=== PATIENT | male | born 1995 | race Caucasian/White ===

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

== ENCOUNTER 2017-11-18 09:47 | Observation (INO) | payer OTHER ==
--- NOTE | 2017-11-18 09:53 | ER Document Report ---
HPI - HPI Patient complains to provider of: abscess Pain Level: 4 Context: Patient is a 22-year-old male who presents emergency department the chief complaint of perirectal pain. Patient states his been there for the past 3-4 days. Patient denies any pain with defecation but he admits to loose stools. States he had a similar occurrence of this in the past where he was initiated antibiotics and warm soaks in its drained on its own. Symptoms about 2 years ago. Denies any fevers or chills. Patient denies any drug use. Patient admits to smoking cigarettes. Past Medical History - Social History Smoking Status: Current Every Day Smoker Family History: Reviewed & Not Pertinent - Past Medical History Cardiac Medical History: Reports: Hx Hypertension Renal/ Medical History: Denies: Hx Peritoneal Dialysis - Immunizations Immunizations up to date: Yes Hx Diphtheria, Pertussis, Tetanus Vaccination: Yes Vertical Provider Document - CONSTITUTIONAL Agree With Documented VS: Yes Notes: PHYSICAL EXAM GENERAL: Alert, interacts well. Rectal: Induration, erythema and tenderness left side of the perirectal area digital rectal exam with tenderness NEUROLOGICAL: Alert and oriented x4. Normal speech. PSYCH: Normal affect, normal mood. SKIN: Warm, dry, normal turgor. Palpable induration and erythema along the left perirectal area. - INFECTION CONTROL TRAVEL OUTSIDE OF THE [place] IN LAST 30 DAYS: No Course - Re-evaluation Re-evalutation: 11/18/17 10:05 Patient is a 22-year-old male is hemodynamically stable, no acute distress afebrile. Presentation is concerning for perirectal abscess. Patient's last p.o. intake was 4 AM. Patient to be evaluated by surgeon Dr jamison 11/18/17 10:15 Patient can go to the OR with Dr. Jamison. IV access obtained family agreeable to plan. - Vital Signs Vital signs: Temp Pulse Resp BP Pulse Ox 98.7 F 96 18 134/77 H 98 11/18/17 09:51 11/18/17 09:51 11/18/17 09:51 11/18/17 09:51 11/18/17 09:51 Discharge - Discharge Clinical Impression: Perirectal abscess Condition: Good Disposition: ADMITTED OBSERVATION Admitting Provider: Surgicalist Unit Admitted: Surgical Floor Referrals: KYMBERLY LOZANO MD [Primary Care Provider] - Follow up as needed
[2017-11-18] MEDS ORDERED: RINGERS SOLUTION,LACTATED 1,000 ML IV PRN (10:14)
[2017-11-18] MEDS ORDERED: PIPERACILLIN/TAZOBACTAM 3.375 GM VIAL IV ONE (10:14)
[2017-11-18 10:51] LABS: ABSOLUTE BASOPHILS # (AUTO) 0.1 10^3/uL (0.0-0.2); ABSOLUTE EOSINOPHILS # (AUTO) 0.2 10^3/uL (0.0-0.6); ABSOLUTE LYMPHOCYTES (AUTO) 1.7 10^3/uL (0.5-4.7); ABSOLUTE MONOCYTES (AUTO) 1.2 10^3/uL (0.1-1.4); BASOPHILS % (AUTO) 0.4 % (0-2); EOSINOPHILS % (AUTO) 1.5 % (0-6); HEMATOCRIT 46.4 % (37.9-51.0); HEMOGLOBIN 15.9 g/dL (13.5-17.0); LYMPHOCYTES % (AUTO) 12.9 % (13-45); MEAN CORPUSCULAR HEMOGLOBIN 31.7 pg (27.0-33.4); MEAN CORPUSCULAR HGB CONC 34.3 g/dL (32.0-36.0); MEAN CORPUSCULAR VOLUME 93 fl (80-97); MONOCYTES % (AUTO) 8.8 % (3-13); PLATELET COUNT 184 10^3/uL (150-450); RED BLOOD COUNT 5.01 10^6/uL (4.35-5.55); RED CELL DISTRIBUTION WIDTH 12.9 % (11.5-14.0); SEGMENTED NEUTROPHILS % (AUTO) 76.4 % (42-78); TOTAL CELLS COUNTED % (AUTO) 100 %; WHITE BLOOD COUNT 13.1 10^3/uL (4.0-10.5)
[2017-11-18 11:05] LABS: URINE AMPHETAMINES SCREEN NEGATIVE; URINE BARBITURATES SCREEN NEGATIVE; URINE BENZODIAZEPINES SCREEN NEGATIVE; URINE COCAINE SCREEN NEGATIVE; URINE MARIJUANA (THC) SCREEN NEGATIVE; URINE METHADONE SCREEN NEGATIVE; URINE PHENCYCLIDINE SCREEN NEGATIVE
[2017-11-18 11:09] LABS: ANION GAP 12 (5-19); BLOOD UREA NITROGEN 15 mg/dL (7-20); CALCIUM 9.9 mg/dL (8.4-10.2); CARBON DIOXIDE 28 mmol/L (22-30); CHLORIDE 106 mmol/L (98-107); GLUCOSE 95 mg/dL (75-110); POTASSIUM 3.8 mmol/L (3.6-5.0); SODIUM 145.6 mmol/L (137-145)
[2017-11-18] MEDS ORDERED: FENTANYL CITRATE INJ/PF 100 MCG/2 ML AMPUL ONE ×2 (12:53→14:14)
[2017-11-18] MEDS ORDERED: MIDAZOLAM 2 MG/2 ML INJ ONE (12:54)
[2017-11-18] MEDS ORDERED: MORPHINE SULFATE 10 MG/ML INJ ONE (12:54)
[2017-11-18] MEDS ORDERED: PROPOFOL INJ 200 MG/20 ML VIAL IV ONE (12:54)
[2017-11-18] MEDS ORDERED: DIPHENHYDRAMINE HCL 50 MG/ML VIAL IV PRN (12:56)
[2017-11-18] MEDS ORDERED: PROMETHAZINE HCL INJ 25 MG/1 ML VIAL IV PRN (12:56)
[2017-11-18] MEDS ORDERED: MEPERIDINE HCL/PF INJ 25 MG/1 ML DISP.SYRIN IV PRN (12:56)
[2017-11-18] MEDS ORDERED: ONDANSETRON HCL INJ/PF 4 MG/2 ML SDV IV PRN (12:56)
[2017-11-18] MEDS ORDERED: FENTANYL CITRATE INJ/PF 100 MCG/2 ML AMPUL IV PRN ×3 (12:56)
[2017-11-18] MEDS ORDERED: PROMETHAZINE HCL INJ 25 MG/1 ML VIAL ONE (14:14)
[2017-11-18] MEDS ORDERED: MORPHINE SULFATE 10 MG/ML INJ IV PRN (14:53)
[2017-11-18] MEDS ORDERED: NORMAL SALINE 1000 ML 1,000 ML IV PRN (14:54)
[2017-11-18] MEDS ORDERED: OXYCODONE-ACETAMINOPHEN 5-325 MG TABLET PO PRN (14:54)
[2017-11-18] MEDS ORDERED: SUCCINYLCHOLINE CHLORIDE INJ 200 MG/10 ML VIAL ONE (16:22)
[2017-11-18] MEDS ORDERED: PIPERACILLIN SODIUM/TAZOBACTAM 3.375 GM in NORMAL SALINE 100 ML IV SCH (18:00)
[2017-11-18 18:55] VITALS: BP 150/61
--- NOTE | 2017-11-18 20:34 | OPERATIVE REPORT E ---
Operative Report NAME: NADINE FLANAGAN : 1995 AGE: 22Y DATE OF SURGERY: 11/18/2017 ROOM: 205 PREOPERATIVE DIAGNOSIS: LEFT PERIANAL ABSCESS. POSTOPERATIVE DIAGNOSIS: LEFT PERIANAL ABSCESS. OPERATION: Incision and drainage of left perianal abscess. SURGEON: KELSEA STONER M.D. ANESTHESIA: General. INDICATIONS: This is a 22-year-old male complaining of left perianal pain for the past 2 days. Patient was seen in the urgent care center and sent immediately to our ED, where he was noted to have tenderness in the left perianal area. PROCEDURE: Patient was placed in supine position, and after adequate general anesthesia, he was then repositioned into lithotomy position. The perianal area was then prepped and draped in the usual sterile fashion. Appropriate timeout was then called. Next, rectal exam was done, and no evidence of obvious fistula noted in the rectal side. He does have some induration in the left perianal area. This was then aspirated using an 18-gauge needle for a total of about 6 mL of purulent material. The puncture site was then enlarged to about 1.5 cm in diameter. The incision was enough to allow digital probe of the cavity. It appeared to be going down posteriorly and anteriorly. Anteriorly, it was just underneath the skin, the subcutaneous area, but posteriorly, it appeared to be going through the muscle layer. This was then probed, but no evidence of connection to the rectal area was noted. This was then pulse-lavaged with 2 liters of saline, and the cavity packed with almost a bottle of quarter-inch Iodoform gauze. The skin edges were cauterized for hemostasis. Sterile dressings with 4 x 4 and ABD pads and covered with thin panty to keep the dressing in place. Patient tolerated procedure well and brought to recovery room in satisfactory condition. Needle, instrument and sponge counts were all correct. Estimated blood loss about 30 mL. DICTATING PHYSICIAN: KELSEA STONER M.D. [id number] PHY#: [id number] ID: [id number] JOB#: [id number] ACCT: [id number] cc:KELSEA STONER M.D. >
--- NOTE | 2017-12-11 18:26 | PDOC H&P ---
History of Present Illness Admission Date/PCP: 11/18/17 11:05 KYMBERLY LOZANO MD Patient complains of: left anup-anal pains History of Present Illness: NADINE FLANAGAN is a 22 year old male who c/o left anup-anal pains past 2 days. Went to an urgent care and subsequently sent to ED. Noted tenderness at the left anup-anal area. Past Medical History Cardiac Medical History: Reports: Hypertension Social History Smoking Status: Never Smoker - Advance Directive Resuscitation Status: Full Code Family History Family History: Reviewed & Not Pertinent Parental Family History Reviewed: Yes Children Family History Reviewed: No Sibling(s) Family History Reviewed.: No Medication/Allergy Home Medications: Ciprofloxacin HCl [Cipro 500 mg Tablet] 500 mg PO BID 11/18/17 Oxycodone HCl/Acetaminophen [Percocet 5-325 mg Tablet] 1 tab PO ASDIR PRN Allergies/Adverse Reactions: No Known Allergies Allergy (Verified 07/29/15 20:04) Review of Systems All systems: reviewed and no additional remarkable complaints except as stated - left prei-anal pains Constitutional: PRESENT: anorexia Eyes: PRESENT: other - no visual/hearing changes Gastrointestinal: PRESENT: other - anup-anal pains Genitourinary: PRESENT: other - no dysuria Physical Exam Vital Signs: Temp Pulse Resp BP Pulse Ox 97.9 F 73 18 150/61 H 97 11/18/17 18:53 11/18/17 18:53 11/18/17 18:53 11/18/17 18:53 11/18/17 18:53 General appearance: PRESENT: mild distress Head exam: PRESENT: atraumatic Eye exam: PRESENT: conjunctiva pink Mouth exam: PRESENT: moist Neck exam: PRESENT: full ROM Respiratory exam: PRESENT: clear to auscultation pardeep Cardiovascular exam: PRESENT: RRR Pulses: PRESENT: normal radial pulses Vascular exam: PRESENT: normal capillary refill GI/Abdominal exam: PRESENT: soft Rectal exam: PRESENT: tenderness - left anup-anal area Neurological exam: PRESENT: alert, oriented to person, oriented to place, oriented to time, oriented to situation Psychiatric exam: PRESENT: appropriate affect Assessment & Plan - Time Time Spent: 30 to 50 Minutes - Plan Summary Plan Summary: For I&D left anup-anal abscess IV antibiotics
--- NOTE | 2017-12-12 05:55 | DISCHARGE SUMMARY E ---
Discharge Summary NAME: NADINE FLANAGAN : 1995 AGE: 22Y ADMITTED: 11/18/2017 DISCHARGED: 11/18/2017 FINAL DIAGNOSIS: Left perianal abscess. PROCEDURE: Incision and drainage of left perianal abscess. HOSPITAL COURSE: This 22-year-old male noted to have a left perianal abscess for the past 2 days. The patient was seen in the emergency department with tenderness in the left perianal area. The patient was then taken to the OR the same day, where incision and drainage of left perianal abscess was then performed. A 1/4 inch Iodoform gauze was used to pack the abscess cavity site. The patient felt better and was able to go home the same day. The patient was advised to start sitz baths at home for about 3-4 times a day and to follow up in the surgical clinic in about 2 days for removal of the packing. He was given a prescription for Cipro 500 mg p.o. twice a day for the next 7 days. DICTATING PHYSICIAN: KELSEA STONER M.D. [id number] Y#: [id number] ID: [id number] JOB#: [id number] ACCT: [id number] cc:KELSEA STONER M.D. [facility],
== END 2017-11-18 19:23 | disposition home or self-care (01) ==
LOC: ER 09:47 → EH 11:05 → 2N 15:08
PROVIDERS: ATTEND Surgery
PROC: 0HD8XZZ Extraction of Buttock Skin, External Approach (ICD-10-PCS; 2017-11-18)
PROC: 0D9QXZZ Drainage of Anus, External Approach (ICD-10-PCS; principal; 2017-11-18 13:00)
DX: K61.0 Anal abscess (principal); R63.0 Anorexia; F17.200 Nicotine dependence, unspecified, uncomplicated
CPT/HCPCS: 99284; 96361; 96365; 36415; 87205; 87070; 85025; 87075; 87077; 80048; 87186; 80307; 46050; 11000; G0378; A6266; J2250; J3010; J2270; J2550; J0330; J7120; J2704; J2543; 902